=== PATIENT | male | born 1995 | race African-American/Black ===

== ENCOUNTER 2018-04-21 20:45 | Emergency (ER) | payer OTHER ==
[~2018-04-21] VITALS: Ht 177.8 cm; Wt 68.0 kg
--- NOTE | 2018-04-21 21:00 | NUR ---
MD THOMAS AT BEDSIDE FOR MSE
--- NOTE | 2018-04-21 21:05 | NUR ---
PT EXPRESSES BEING HOMELESS AND NEEDING PLACEMENT FOR HOUSING
[2018-04-21 21:14] LABS: BASOPHILS # (AUTO) 0.1 K/uL (0.0-8.0); BASOPHILS % (AUTO) 0.8 % (0.0-2.0); EOSINOPHILS # (AUTO) 0.2 K/uL (0.0-0.7); EOSINOPHILS % (AUTO) 2.6 % (0.0-7.0); HEMATOCRIT 40.4 % (36.7-47.1); HEMOGLOBIN 13.9 g/dL (12.5-16.3); LYMPHOCYTES # (AUTO) 3.3 K/uL (20.0-40.0); LYMPHOCYTES % (AUTO) 39.7 % (20.5-51.5); MEAN CORPUSCULAR HEMOGLOBIN 31.1 uug (23.8-33.4); MEAN CORPUSCULAR HGB CONC 34 g/dL (32.5-36.3); MEAN CORPUSCULAR VOLUME 90.7 fL (73.0-96.2); MONOCYTES # (AUTO) 0.7 K/uL (2.0-10.0); MONOCYTES % (AUTO) 8.8 % (0.0-11.0); NEUTROPHILS % (AUTO) 48.1 % (38.5-71.5); PLATELET COUNT (AUTO) 248 K/uL (152-348); RED BLOOD CELL COUNT(AUTO) 4.46 MIL/uL (4.06-5.63); WHITE BLOOD COUNT (AUTO) 8.3 K/uL (3.6-10.2)
[2018-04-21 21:24] LABS: CARBON DIOXIDE 29 mmol/L (21-32); CHLORIDE 99 mmol/L (98-107); CREATININE 0.9 mg/dL (0.6-1.3); GLUCOSE 81 mg/dL (74-106); POTASSIUM 3.5 mmol/L (3.5-5.1); UREA NITROGEN, BLOOD 18 mg/dL (7-18)
[2018-04-21 21:33] LABS: *AMPHETAMINE, URINE POSITIVE (NEGATIVE); *BARBITURATE, URINE NEGATIVE (NEGATIVE); *CANNABINOID, URINE NEGATIVE (NEGATIVE); *COCCAINE, URINE NEGATIVE (NEGATIVE); *OPIATE, URINE NEGATIVE (NEGATIVE); *PHENCYCLIDINE SCREEN,URINE NEGATIVE (NEGATIVE)
[2018-04-21 21:41] LABS: ETHANOL < 3 MG/DL (0-0)
[2018-04-21 21:42] LABS: ALANINE AMINOTRANSFERASE 62 U/L (16-63); ALKALINE PHOSPHATASE 86 U/L (50-136); ASPARTATE AMINOTRANSFERASE 38 U/L (15-37); BILIRUBIN,DIRECT 0.2 mg/dL (0.0-0.2); BILIRUBIN,TOTAL 1.2 mg/dL (0.2-1.0); TOTAL PROTEIN, SERUM 8.3 g/dL (6.4-8.2)
[2018-04-21 21:46] LABS: ACETAMINOPHEN < 2.0 ug/mL (10-30)
[2018-04-21] MEDS ORDERED: OLANZAPINE 5 MG TABLET ONE (21:48)
[2018-04-21] MEDS: OLANZAPINE 5 MG TABLET PO ONE (21:52)
--- NOTE | 2018-04-21 22:04 | NUR ---
CALL PLACED TO [facility]. ETA 30-45MINS
--- NOTE | 2018-04-21 23:40 | NUR ---
PT NOT PLACED ON HOLD BY [employer] MACHINE OPERATOR, [facility]
[2018-04-22] MEDS ORDERED: LORAZEPAM 1 MG TABLET ONE (02:09)
[2018-04-22] MEDS: LORAZEPAM 0.5 MG TABLET PO ONE (02:13)
--- NOTE | 2018-04-22 02:45 | NUR ---
Patient discharged to home in stable conditon. Written and verbal after care instructions given. Patient verbalizes understanding of instructions. Patient able to ambulate with steady gait. Patient left with all personal belongings.
[2018-04-22 02:57] VITALS: BP 124/78
== END 2018-04-22 02:45 | disposition home or self-care (01) ==
LOC: ER 20:46
DX: R44.0 Auditory hallucinations (principal); F15.10 Other stimulant abuse, uncomplicated; F17.200 Nicotine dependence, unspecified, uncomplicated; Z59.0 Homelessness; Z88.2 Allergy status to sulfonamides
CPT/HCPCS: 36415; 80307; 85025; A4663; G0480; G0480-TC

== ENCOUNTER 2020-03-07 16:46 | Emergency (ER) | payer OTHER ==
[~2020-03-07] VITALS: Ht 177.8 cm; Wt 63.5 kg
[2020-03-07 17:26] LABS: BASOPHILS # (AUTO) 0.1 K/uL (0.0-8.0); BASOPHILS % (AUTO) 1.3 % (0.0-2.0); EOSINOPHILS # (AUTO) 0.3 K/uL (0.0-0.7); EOSINOPHILS % (AUTO) 4.9 % (0.0-7.0); HEMOGLOBIN 13.4 g/dL (12.5-16.3); LYMPHOCYTES # (AUTO) 3.1 K/uL (20.0-40.0); LYMPHOCYTES % (AUTO) 43.6 % (20.5-51.5); MEAN CORPUSCULAR HEMOGLOBIN 28.8 uug (23.8-33.4); MEAN CORPUSCULAR HGB CONC 34 g/dL (32.5-36.3); MEAN CORPUSCULAR VOLUME 85.8 fL (73.0-96.2); MONOCYTES # (AUTO) 0.8 K/uL (2.0-10.0); MONOCYTES % (AUTO) 11.8 % (0.0-11.0); NEUTROPHILS # (AUTO) 2.7 K/uL (1.8-8.9); NEUTROPHILS % (AUTO) 38.4 % (38.5-71.5); PLATELET COUNT (AUTO) 295 K/uL (152-348); RED BLOOD CELL COUNT(AUTO) 4.66 MIL/uL (4.06-5.63)
[2020-03-07 17:37] LABS: ALANINE AMINOTRANSFERASE 37 U/L (16-63); ALKALINE PHOSPHATASE 65 U/L (50-136); ASPARTATE AMINOTRANSFERASE 25 U/L (15-37); BILIRUBIN,DIRECT 0.3 mg/dL (0.0-0.2); BILIRUBIN,TOTAL 1.4 mg/dL (0.2-1.0); CARBON DIOXIDE 26 mmol/L (21-32); CHLORIDE 101 mmol/L (98-107); CREATININE 1.1 mg/dL (0.6-1.3); GLUCOSE 87 mg/dL (74-106); POTASSIUM 3.8 mmol/L (3.5-5.1); TOTAL PROTEIN, SERUM 8.8 g/dL (6.4-8.2); UREA NITROGEN, BLOOD 20 mg/dL (7-18)
[2020-03-07 17:42] LABS: ETHANOL < 3 MG/DL (0-0)
[2020-03-07 17:43] LABS: ACETAMINOPHEN < 2.0 ug/mL (10-30)
[2020-03-07 18:57] LABS: *BILIRUBIN,URIN NEGATIVE (NEGATIVE); *BLOOD, URINE NEGATIVE (NEGATIVE); *CLARITY,URINE CLEAR (CLEAR); *COLOR,URINE YELLOW (YELLOW); *KETONES,URINE NEGATIVE (NEGATIVE); *UROBILINOGEN,URINE 0.2 E.U./dl (NORMAL); LEUKOCYTE ESTERASE ,URINE NEGATIVE (NEGATIVE); NITRITE, URINE NEGATIVE (NEGATIVE); UGLUCOSE NEGATIVE (NEGATIVE)
--- NOTE | 2020-03-07 19:02 | NUR ---
stil for medical clearance, urine sent to lab, pending results, endorsed to 7pm nurse
[2020-03-07 19:03] LABS: *AMPHETAMINE, URINE POSITIVE (NEGATIVE); *BARBITURATE, URINE NEGATIVE (NEGATIVE); *CANNABINOID, URINE NEGATIVE (NEGATIVE); *COCCAINE, URINE NEGATIVE (NEGATIVE); *OPIATE, URINE NEGATIVE (NEGATIVE); *PHENCYCLIDINE SCREEN,URINE NEGATIVE (NEGATIVE)
--- NOTE | 2020-03-07 19:23 | NUR ---
URINE DRUG SCREEN RESULTED, LEFT MESSAGE ON [employer] PHONE.
[2020-03-07] MEDS ORDERED: QUETIAPINE FUMARATE 200 MG TABLET ONE (19:43)
[2020-03-07] MEDS ORDERED: QUETIAPINE FUMARATE 25 MG TABLET PO ONE (19:45)
[2020-03-07 19:54] VITALS: BP 128/50
--- NOTE | 2020-03-07 19:59 | NUR ---
PATIENT SPEAKING WITH DR. THOMAS, STATED ALL HE NEEDS IS A PRESCRIPTION OF HIS MEDICATION. HE STATES HE IS NOT SUICIDAL AT THIS TIME.
--- NOTE | 2020-03-07 20:00 | NUR ---
Patient discharged to home in stable condition. Written and verbal after care instructions given. Patient verbalizes understanding of instructions. Stressed follow up or return to ER for worsening s/s. PATIENT LEFT WITH STABLE GAIT.
--- NOTE | 2020-03-07 20:00 | NUR ---
Patient given written and verbal discharge instructions. Patient verbalizes understanding of instructions. Patient is ambulatory with steady gait. Refuses offer of [facility]pc placement. Patient given list of available shelters in surrounding area.
== END 2020-03-07 20:01 | disposition home or self-care (01) ==
LOC: ER 16:47
DX: F15.10 Other stimulant abuse, uncomplicated (principal); F20.9 Schizophrenia, unspecified; Z59.0 Homelessness; Z76.5 Malingerer [conscious simulation]
CPT/HCPCS: 36415; 80048; 80076; 80307 ×2; 80329; 81001; 85025; 99285; G0480; A4663

== ENCOUNTER 2020-08-14 16:41 | Emergency (ER) | payer OTHER ==
[~2020-08-14] VITALS: Ht 177.8 cm; Wt 68.0 kg
--- NOTE | 2020-08-14 17:10 | NUR ---
PT SEEN AND EVALUATED BY DR LIN.
[2020-08-14] MEDS ORDERED: OLANZAPINE 5 MG TABLET ONE (17:30)
[2020-08-14] MEDS ORDERED: OLANZAPINE 5 MG TABLET PO ONE (17:30)
[2020-08-14 18:55] LABS: *BILIRUBIN,URIN NEGATIVE (NEGATIVE); *BLOOD, URINE NEGATIVE (NEGATIVE); *CLARITY,URINE CLEAR (CLEAR); *COLOR,URINE YELLOW (YELLOW); *KETONES,URINE NEGATIVE (NEGATIVE); *UROBILINOGEN,URINE 0.2 E.U./dl (NORMAL); LEUKOCYTE ESTERASE ,URINE NEGATIVE (NEGATIVE); NITRITE, URINE NEGATIVE (NEGATIVE); UGLUCOSE NEGATIVE (NEGATIVE)
[2020-08-14 19:05] LABS: *AMPHETAMINE, URINE POSITIVE (NEGATIVE); *CANNABINOID, URINE NEGATIVE (NEGATIVE); *COCCAINE, URINE NEGATIVE (NEGATIVE); *OPIATE, URINE NEGATIVE (NEGATIVE); *PHENCYCLIDINE SCREEN,URINE NEGATIVE (NEGATIVE)
--- NOTE | 2020-08-14 19:30 | NUR ---
retail warehouse supervisor notifed of need of sitter for this patient. retail warehouse supervisor stated no sitter available at this time; pending sitter.
--- NOTE | 2020-08-14 20:02 | NUR ---
Patient stated feels better now and wants to leave. made aware.
--- NOTE | 2020-08-14 20:05 | NUR ---
Patient given written and verbal discharge instructions. Patient verbalizes understanding of instructions. Patient is ambulatory with steady gait. Refuses offer of care home placement. Patient given list of available shelters in surrounding area. Pt out of ER with steady gait, no acute signs of distress, VSS, all belongings taken, patient refuses all other services at this time and will arrange own transportation.
[2020-08-14 20:09] VITALS: BP 139/82
== END 2020-08-14 20:09 | disposition home or self-care (01) ==
LOC: ER 16:41
DX: F20.9 Schizophrenia, unspecified (principal); F15.10 Other stimulant abuse, uncomplicated; U07.1 COVID-19; Z59.0 Homelessness; Z88.2 Allergy status to sulfonamides; R03.0 Elevated blood-pressure reading, without diagnosis of hypertension
CPT/HCPCS: A4663